=== PATIENT | female | born 1995 | race Caucasian/White ===

== ENCOUNTER 2017-01-21 10:43 | Day surgery (SDC) | payer BC ==
[~2017-01-21] VITALS: Ht 160 cm; Wt 75.9 kg
[~2017-01-21 10:43] MED LIST: EFFEXOR75 MG PO; FLUOXETINE HCL20 MG PO; LORAZEPAM0.5 MG PO; LORTAB 10 MG-3473 ML PO; SEROQUEL12.5 MG PO; SPRINTEC1 EACH PO; ZOFRAN ODT8 MG PO; ZOFRAN4 MG PO; ZOLPIDEM TARTRAT5 MG PO
[2017-01-21 11:11] VITALS: BP 134/81
[2017-01-21 11:14] LABS: BASOPHIL COUNT 0.1 K/uL (0-0.1); EOSINOPHIL (%) 1.2 % (0-5); EOSINOPHIL COUNT 0.1 K/uL (0-0.3); HEMATOCRIT 41.1 % (36.0-46.0); IMMATURE GRANULOCYTE (%) 0.6 % (0.0-0.7); IMMATURE GRANULOCYTE COUNT 0.1 K/uL; INSTRUMENT ABS NEUTROPHIL CT 5.1 K/uL; LYMPHOCYTE COUNT 3.4 K/uL (1.0-2.8); MCH 27.3 PG (29.0-34.0); MCHC 32.1 G/DL (30.0-36.0); MCV 84.9 FL (83-99); MEAN PLAT.VOLUME 10.1 uM^3 (9.5-12.4); MONOCYTE (%) 6.1 % (3-12); MONOCYTE COUNT 0.6 K/uL (0-0.8); NEUTROPHIL (%) 55.2 % (45-76); NEUTROPHIL COUNT 5.1 K/uL (1.8-6.4); PLATELET COUNT 387 K/uL (156-360); RBC DIS.WIDTH-CV 13.3 % (11.8-14.6); RBC DIS.WIDTH-SD 41.4 % (39-53); RED BLOOD COUNT 4.84 M/uL (3.80-5.20); WHITE BLOOD COUNT 9.3 K/uL (4.1-10.2)
[2017-01-21 11:25] LABS: PROTHROMBIN TIME 10.3 (9.2-11.2)
[2017-01-21 12:14] LABS: ANION GAP 12 MEQ/L (2-14); CHLORIDE 102 MEQ/L (99-109); POTASSIUM 3.7 MEQ/L (3.7-5.4); SAMPLE HEMOLYSIS CHECK 0; SAMPLE ICTERIC CHECK 0; SAMPLE LIPEMIA CHECK 0; SODIUM 138 MEQ/L (136-147); TOTAL BILIRUBIN 0.5 MG/DL (0.0-1.0)
[2017-01-21 12:19] LABS: ALKALINE PHOSPHATASE 71 IU/L (3-129); GFR ESTIMATE (CALCULATED) > 59 mL/min/; GLUCOSE 85 mg/dL (70-99); UREA NITROGEN (BUN) 10 mg/dL (9-23)
[2017-01-21 12:23] LABS: QUANTITATIVE HCG < 4.0 MIU/ML
[2017-01-21] MEDS ORDERED: MOTRIN600 MG PO (13:17)
[2017-01-21] MEDS ORDERED: METAMUCIL PACKE1 PKT PO (13:31)
[2017-01-21] MEDS ORDERED: COLACE100 MG PO (13:31)
[2017-01-21 14:56] VITALS: BP 133/82
[2017-01-21 15:50] VITALS: BP 122/76
== END 2017-01-21 15:50 | disposition home or self-care (01) ==
LOC: SDC 10:43 → 2SOUTH 10:46 → EDSTATUS 10:47 → SDC 10:52
PROVIDERS: Thoracic Surgery (Cardiothoracic Vascular Surgery)
DX: K64.4 Residual hemorrhoidal skin tags (principal); K62.5 Hemorrhage of anus and rectum; K62.89 Other specified diseases of anus and rectum; Z86.010 Personal history of colon polyps; F41.9 Anxiety disorder, unspecified; Z82.49 Family history of ischemic heart disease and other diseases of the circulatory system; Z83.3 Family history of diabetes mellitus; Z83.49 Family history of other endocrine, nutritional and metabolic diseases; Z83.2 Family history of diseases of the blood and blood-forming organs and certain disorders involving the immune mechanism; Z91.013 Allergy to seafood
CPT/HCPCS: 80053; 84702; 85025; 85610; 88304; J0690; J2060; J2250; J2405; J3010

== ENCOUNTER 2017-04-21 18:29 | Emergency (ER) | payer BC ==
[~2017-04-21] VITALS: Ht 162.6 cm; Wt 88.2 kg
[~2017-04-21 18:29] MED LIST changes: +COLACE100 MG PO; +METAMUCIL PACKE1 PKT PO; +MOTRIN600 MG PO
[2017-04-21 19:35] LABS: ADD MIUA? NO; BILIRUBIN NEGATIVE; BLOOD NEGATIVE; COLOR STRAW ((YELLOW)); GLUCOSE (STRIP) NEGATIVE; INTERNAL CONTROL VALID? YES; KETONES NEGATIVE; LEUKOCYTES NEGATIVE; NITRITE NEGATIVE; PROTEIN (STRIP) NEGATIVE; SPECIFIC GRAVITY 1.009 (1.000-1.030); UCUL ADDED? NO; UROBILINOGEN 0.2 MG/DL (0.2-1.0)
[2017-04-21 20:13] LABS: HEMATOCRIT 43.2 % (36.0-46.0); MCH 26.4 PG (29.0-34.0); MCHC 32.4 G/DL (30.0-36.0); MCV 81.5 FL (83-99); MEAN PLAT.VOLUME 9.6 uM^3 (9.5-12.4); PLATELET COUNT 462 K/uL (156-360); RBC DIS.WIDTH-CV 14.1 % (11.8-14.6); RBC DIS.WIDTH-SD 41.6 % (39-53); WHITE BLOOD COUNT 12.4 K/uL (4.1-10.2)
[2017-04-21 20:35] LABS: CHLORIDE 105 mEq/L (99-109); POTASSIUM 4.1 mEq/L (3.7-5.4); SODIUM 140 mEq/L (136-147)
[2017-04-21 20:37] LABS: GLUCOSE 123 mg/dL (70-99)
[2017-04-21 20:38] LABS: ANION GAP 11 MEQ/L (2-14)
[2017-04-21 20:39] LABS: TOTAL BILIRUBIN 0.3 mg/dL (0.0-1.0)
[2017-04-21 20:40] LABS: ALKALINE PHOSPHATASE 89 IU/L (3-129)
[2017-04-21 20:41] LABS: GFR ESTIMATE (CALCULATED) > 59 mL/min/
[2017-04-21 20:42] LABS: UREA NITROGEN (BUN) 12 mg/dL (9-23)
[2017-04-21 20:44] LABS: LIPASE 30 U/L (1.0-51.0)
[2017-04-21] MEDS ORDERED: ZOFRAN ODT4 MG PO (23:13)
[2017-04-21 23:35] VITALS: BP 135/88
== END 2017-04-21 23:39 | disposition home or self-care (01) ==
LOC: EME 18:29
PROVIDERS: Emergency Medicine
DX: R51 Headache (principal); R11.0 Nausea; F41.9 Anxiety disorder, unspecified; J45.909 Unspecified asthma, uncomplicated; F32.9 Major depressive disorder, single episode, unspecified
CPT/HCPCS: 80053; 81003; 83690; 84703; 85027; 93005; 99281; 99285; J2060; J2405; J7030